=== PATIENT | male | born 1995 | race African-American/Black ===

== ENCOUNTER → 2020-04-29 09:20 | Oncology outpatient (ONC) | payer OTHER, SELFPAY ==
--- NOTE | 2019-11-30 10:14 | P.CONONC_ITS ---
History of Present Illness - Data of Consult Patient: new to practice Consult date: 11/30/19 Requesting Physician: Pardeep Diaz MD Primary Care Provider: Pardeep Diaz MD - Consult Narrative Reason for consult: Papular itching rashes with polycythemia Narrative: Noé Rios is a 24 year old male for evaluation of possible polycythemia vera. Noé reported that after he came back from [facility] early in Jun 2019, he developed intense itching skin with burning sensation, and small dotted papular rashes over his forearms and legs. He showed me the photos he took with his mobile phone. Noé said that he was evaluated by his PCP and was prescribed antihistamine Zyrtec which he said was not effective. Labs from 06/26/2019 showed WBC 5.9, HGB 16.5, HCT 51.6, PLT 219. BUN 14, Cr 1.3. Repeat test on 06/28/2019 showed WBC 7.7, HGB 16.7, HCT 52.8, PLT 242. He denies fever or chills. He denies any blisters. The papular rashes come when itching becomes severe. Furthermore, he noticed that hot shower and heat can trigger skin itching. Otherwise, he reports good energy, good appetite with normal stable weight. He denies shortness of breath, or chest pain. He denies abdominal pain, fullness or abnormal bowel movement. On 09/01/2019, he was evaluated by Arturo Diaz MD at [facility]. He was then referred to [facility] for further evaluation. CC: Ana Horowitz MD Patient reports pain?: No Home Medications and Allergies Home Medications Medication Instructions Recorded Confirmed Type No Known Home Medications 11/30/19 11/30/19 History Allergies Allergy/AdvReac Type Severity Reaction Status Date / Time No Known Drug Allergies Allergy Verified 11/30/19 10:22 Medical History - Medical, Surgical, Family History Family History: Family History (Last Updated 11/30/19 @ 10:35 by Ana Horowitz MD) Grandmother Diabetes mellitus Hypertension Mother Diabetes mellitus Grandfather Diabetes mellitus - Social History Smoking Status: Current every day smoker Substance Use Type: does not use Alcohol Intake Frequency: holidays/special occasions only Review of Systems All systems PM: reviewed and no additional remarkable complaints except as stated Exam Vital signs: 11/30/19 10:58 Last Vital Signs Temp 97.6 F 11/30/19 10:19 Pulse 70 11/30/19 10:19 Resp 16 11/30/19 10:19 BP 128/71 11/30/19 10:19 Pulse Ox 98 11/30/19 10:19 Narrative: ECOG 0 Vitals above reviewed Constitutional: well developed, and well nourished, and well groomed, not in any acute respiratory distress, pleasant and cooperative. HEENT: NCAT, EOMI, PERRLA. Anicteric sclera. Neck: Supple and symmetrical, no palpable masses. No palpable thyromegaly. Respiratory: No use of accessory muscles. CTAB, no wheezes. Cardiovascular: RRR, S1 and S2 normal, no M/G/R. No edema of lower extremities. Abdomen: Soft, NTND, no palpable masses. No palpable hepatosplenomegaly. No hernia. Lymphatic: no palpable palpable lymph nodes in the neck, or axillae Musculoskeletal: normal gait and station Skin: No rashes, lesions, or ulcers. No induration, or subcutaneous nodules. Neurological: CN II-XII grossly intact. No focal motor or sensory deficit. Psychiatric: Normal judgment and insight. AOx3. Normal memory (recent and bubba te). Normal mood and affect. Results - Labs Pending Assessment and Plan (1) Polycythemia 24-year-old male with aqua itching and mild erythrocytosis since June 2019 presents here today for consult visit. At present, patient does not have any rashes or itching. The symptoms typically occurs when he is taking hot showers or the weather is too hot. No family history of malignancy. The symptoms are worrisome for possible myeloproliferative neoplasia especially polycythemia vera. But other possibilities including allergy, cannot be completely excluded. I talked with the patient that I will obtain blood samples and proceed with screening tests first. Plan: CBC, CMP, LDH, Iron panel, Ferritin, Ig G/A/M/E, [id number] screening with reflex RTC in 4 weeks to review the results.
[2019-11-30 10:19] VITALS: BP 128/71; PULSE 70; RESP 16; TEMP 36.4; O2SAT 98
--- NOTE | 2019-12-05 14:45 | ONC.SCHED ---
Submitted for PA for JAK2 w/ Reflexes ()
--- NOTE | 2019-12-18 15:51 | ONC.SCHED ---
Faxed additional information for laboratory developed tests as completed by Yesi/Dr Horowitz.
[2019-12-21 15:40] LABS: Add Manual Diff / Slide Review NO; Basophils Absolute Auto 0 /uL (0-100); Basophils Percent Auto 0.3 % (0-2); Eosinophils Absolute Auto 100 /uL (0-450); Hematocrit 47.4 % (41-53); Hemoglobin 15.8 g/dL (13.5-17.5); Lymphocytes Absolute Auto 1600 /uL (1100-4500); Mean Corpuscular HGB Conc 33.4 % (30-36); Mean Corpuscular Hemoglobin 27.6 PG (26-34); Mean Corpuscular Volume 82.7 fL (80-100); Monocytes Absolute Auto 300 /uL (0-900); Monocytes Percent Auto 5.9 % (3-14); Neutrophils Absolute Auto 3700 /uL (1500-7000); Neutrophils Percent Auto 64.8 % (50-75); Platelet Count 199 X10^3/uL (150-400); Red Blood Cell Count 5.73 X10^6/uL (4.5-5.9); Red Cell Distribution Width 13.6 % (11.6-14.8); White Blood Cell Count 5.7 X10^3/uL (4.5-11.0)
[2019-12-21 15:52] LABS: Alanine Aminotransferase 28 IU/L (<50); Albumin 4.7 g/dL (3.5-5.0); Albumin Globulin Ratio 1.3 (1.0-2.8); Alkaline Phosphatase 62 U/L (38-126); Aspartate Aminotransferase 29 IU/L (17-59); BUN Creatinine Ratio 11.1 (6-22); Bilirubin Total 1.1 mg/dL (0.2-1.3); Blood Urea Nitrogen 13 mg/dL (9-20); Calcium 10.1 mg/dL (8.4-10.2); Carbon Dioxide 28 mmol/L (22-32); Chloride 103 mmol/L (98-107); Estimated Glomerular Filt Rate > 60.0 mL/min (>60); Globulin 3.5 g/dL (1.7-4.1); Glucose 93 mg/dL (70-100); HEMOLYSIS < 15 (0-50); Lactate Dehydrogenase 388 U/L (313-618); Sodium 139 mmol/L (137-145); Total Protein 8.2 g/dL (6.3-8.2)
[2019-12-21 15:53] LABS: HEMOLYSIS < 15 (0-50); Iron 124 ug/dL (49-181)
[2019-12-21 16:02] LABS: Erythrocyte Sedimentation Rate 1 MM/HR (0-15)
[2019-12-21 16:04] LABS: Percent Iron Saturation 41 % (20-50); Total Iron Binding Capacity 301 ug/dL (261-462); Transferrin 236 mg/dL (206-381)
[2019-12-21 16:27] LABS: Ferritin 73 ng/mL (18-464)
[2019-12-22 04:37] LABS: IGA 249 mg/dL (90-386); IGG 1619 mg/dL (603-1613); IGM 138 mg/dL (20-172)
[2019-12-24 12:36] LABS: Immunoglobulin E 58 IU/mL (6-495)
[2020-02-19 13:10] VITALS: BP 124/80; PULSE 74; RESP 18; TEMP 36.4; O2SAT 98
--- NOTE | 2020-02-19 13:21 | ONC.PN ---
PN -Subjective Interval history: ID/CC: 24 year old with polycythemia and icterus skin HPI: Noé Rios is a 24 year old male for evaluation of possible polycythemia vera. Noé reported that after he came back from [facility] early in Jun 2019, he developed intense itching skin with burning sensation, and small dotted papular rashes over his forearms and legs. He showed me the photos he took with his mobile phone. Noé said that he was evaluated by his PCP and was prescribed antihistamine Zyrtec which he said was not effective. Labs from 06/26/2019 showed WBC 5.9, HGB 16.5, HCT 51.6, PLT 219. BUN 14, Cr 1.3. Repeat test on 06/28/2019 showed WBC 7.7, HGB 16.7, HCT 52.8, PLT 242. He denies fever or chills. He denies any blisters. The papular rashes come when itching becomes severe. Furthermore, he noticed that hot shower and heat can trigger skin itching. Otherwise, he reports good energy, good appetite with normal stable weight. He denies shortness of breath, or chest pain. He denies abdominal pain, fullness or abnormal bowel movement. On 09/01/2019, he was evaluated by Arturo Diaz MD at [facility]. He was then referred to [facility] for further evaluation. Interim Events: He came here today by himself. He is complaining continued skin tiny papular rashes with itching especially when he is in prolonged hot shower and in hot weather. He presents here today to review the laboratory test results. - Additional ROS All systems PM: reviewed and no additional remarkable complaints except as stated Home Medications and Allergies Home Medications Medication Instructions Recorded Confirmed Type hydroxyzine HCl 10 mg PO TID PRN #21 tab 02/19/20 Rx Allergies Allergy/AdvReac Type Severity Reaction Status Date / Time No Known Drug Allergies Allergy Verified 11/30/19 10:22 Exam Vital signs: Vital Signs Temp Pulse Resp BP Pulse Ox 02/19/20 13:10 97.6 F 74 18 124/80 98 Intake and Output 02/18/20 02/19/20 02/19/20 23:59 07:59 15:59 Other: Weight 79 kg Patient Weight 02/19/20 23:59 Weight 79 kg Narrative: ECOG 0 Vitals above reviewed Constitutional: well developed, and well nourished, and well groomed, not in any acute respiratory distress, pleasant and cooperative. HEENT: NCAT, EOMI, PERRLA. Anicteric sclera. Neck: Supple and symmetrical, no palpable masses. No palpable thyromegaly. Respiratory: No use of accessory muscles. CTAB, no wheezes. Cardiovascular: RRR, S1 and S2 normal, no M/G/R. No edema of lower extremities. Abdomen: Soft, NTND, no palpable masses. No palpable hepatosplenomegaly. No hernia. Lymphatic: no palpable palpable lymph nodes in the neck, or axillae Musculoskeletal: normal gait and station Skin: No rashes, lesions, or ulcers. No induration, or subcutaneous nodules. Neurological: CN II-XII grossly intact. No focal motor or sensory deficit. Psychiatric: Normal judgment and insight. AOx3. Normal memory (recent and remote). Normal mood and affect. Results - Labs Laboratory Last Values WBC 5.7 X10^3/uL (4.5-11.0) 12/21/19 14:28 RBC 5.73 X10^6/uL (4.5-5.9) 12/21/19 14:28 Hgb 15.8 g/dL (13.5-17.5) 12/21/19 14:28 Hct 47.4 % (41-53) 12/21/19 14:28 MCV 82.7 fL (80-100) 12/21/19 14:28 MCH 27.6 PG (26-34) 12/21/19 14:28 MCHC 33.4 % (30-36) 12/21/19 14:28 RDW 13.6 % (11.6-14.8) 12/21/19 14:28 Plt Count 199 X10^3/uL (150-400) 12/21/19 14:28 Neut % (Auto) 64.8 % (50-75) 12/21/19 14:28 Lymph % (Auto) 28.0 % (25-40) 12/21/19 14:28 [place] % (Auto) 5.9 % (3-14) 12/21/19 14:28 Eos % (Auto) 1.0 % (2-4) L 12/21/19 14:28 Baso % (Auto) 0.3 % (0-2) 12/21/19 14:28 Neut # (Auto) 3700 /uL (2148-4674) 12/21/19 14:28 Lymph # (Auto) 1600 /uL (6492-5738) 12/21/19 14:28 [place] # (Auto) 300 /uL (0-900) 12/21/19 14:28 Eos # (Auto) 100 /uL (0-450) 12/21/19 14:28 Baso # (Auto) 0 /uL (0-100) 12/21/19 14:28 ESR 1 MM/HR (0-15) 12/21/19 14:28 Sodium 139 mmol/L (137-145) 12/21/19 14:28 Potassium 4.0 mmol/L (3.4-5.1) 12/21/19 14:28 Chloride 103 mmol/L (98-107) 12/21/19 14:28 Carbon Dioxide 28 mmol/L (22-32) 12/21/19 14:28 BUN 13 mg/dL (9-20) 12/21/19 14:28 Creatinine 1.17 mg/dL (0.66-1.25) 12/21/19 14:28 Estimated GFR > 60.0 mL/min (>60) 12/21/19 14:28 BUN/Creatinine Ratio 11.1 (6-22) 12/21/19 14:28 Glucose 93 mg/dL (70-100) 12/21/19 14:28 Calcium 10.1 mg/dL (8.4-10.2) 12/21/19 14:28 Iron 124 ug/dL (49-181) 12/21/19 14:28 TIBC 301 ug/dL (261-462) 12/21/19 14:28 % Saturation 41 % (20-50) 12/21/19 14:28 Transferrin 236 mg/dL (206-381) 12/21/19 14:28 Ferritin 73 ng/mL (18-464) 12/21/19 14:28 Total Bilirubin 1.1 mg/dL (0.2-1.3) 12/21/19 14:28 AST 29 IU/L (17-59) 12/21/19 14:28 ALT 28 IU/L (<50) 12/21/19 14:28 Alkaline Phosphatase 62 U/L (38-126) 12/21/19 14:28 Lactate Dehydrogenase 388 U/L (313-618) 12/21/19 14:28 Total Protein 8.2 g/dL (6.3-8.2) 12/21/19 14:28 Albumin 4.7 g/dL (3.5-5.0) 12/21/19 14:28 Globulin 3.5 g/dL (1.7-4.1) 12/21/19 14:28 Albumin/Globulin Ratio 1.3 (1.0-2.8) 12/21/19 14:28 IgG 1619 mg/dL (603-1613) H 12/21/19 14:28 IgA 249 mg/dL (90-386) 12/21/19 14:28 IgM 138 mg/dL (20-172) 12/21/19 14:28 IgE 58 IU/mL (6-495) 12/21/19 14:28 JAK2 V617F Mutation Comment (.) 12/21/19 14:28 JAK2 Exon 12 Backgrnd Comment (.) 12/21/19 14:28 JAK2 Director Review Comment (.) 12/21/19 14:28 JAK2 Ex 12-15 (PCR) Comment (.) 12/21/19 14:28 JAK2 Ex 12-15 Method Comment (.) 12/21/19 14:28 JAK2 Ex 12-15 References Comment (.) 12/21/19 14:28 JAK2 Ex 12-15 Dir Rev Comment (.) 12/21/19 14:28 JAK2 V617F Mut Bckgrnd Comment (.) 12/21/19 14:28 JAK2 HPGDE DNA Extract Completed (.) 12/21/19 14:28 Assessment and Plan (1) Polycythemia Overview: 24-year-old male with aqua itching and mild erythrocytosis since June 2019 Assessment: I explained to the patient that JAK2 V617F mutation was negative. I talked with him that overall this mutation account for about 90% of the patients with polycythemia vera. Rare mutations including CALR and MPL account all the remaining soldiers. Given that clinically he still is very symptomatic in terms of the skin itching, I will proceed with testing of MPL and CALR Plan: CALR and MPL mutation analysis Hydroxyazine 10mg tid prn for ithcing RTC in 2-3 weeks to review the results.
--- NOTE | 2020-02-19 15:36 | ONC.SCHED ---
Sent Urgent PA to via their website for specialty labs. These labs were drawn and sent downstairs without obtaining PA first. This energy scheduler noticed it and is in the process of getting an urgent PA. I called [employer] and they thought it would be approved today. The could not give a for certain on today's approval.
--- NOTE | 2020-02-29 10:56 | ONC.SCHED ---
Spoke at length with Timbo @ [facility] regarding the specialty labs cpt [id number] and [id number]. They had cancelled/denied the request due to not receiving additional information from us. However, they didn't send the actual request for additional information. Timbo is working to try to get this request re-considered with the same effective dates as the labs were drawn on 02-19-2020. They will likely send the request for additional information which Dr. Horowitz will complete and we will fax back. I should receive fax or contact within 48 hours.
--- NOTE | 2020-02-29 11:09 | ONC.SCHED ---
Per Timbo: patient's PCM is Dr. Suresh Govea . If we want, we can request that the PCM put in the request for specialty labs/tests, ask for a confirmation number if they agree to do PA, then fax clinicals to for Clinical Review.
--- NOTE | 2020-03-04 16:10 | ONC.SCHED ---
Received approval for MPL Mutation and denial for CALR Mutation, both drawn on 02/19/2020. Placed copy in Dr. Horowitz's box to inform him that does not cover the CALR test. Placed copy in [employer]OSPECTING [employer]LL[employer] box to see if she would like to work an appeal.
--- NOTE | 2020-03-11 11:16 | ONC.MSW ---
Description: CALR Mutation Denial Activity: Spoke with Dr. Horowitz re: the approval for the MPL mutation test, and denial for the CALR mutation test. He would like to move forward with having the pt drawn for the MPL mutation. If needed, he will then pursue the CALR mutation test based on the results. No appeal needed at this time.
--- NOTE | 2020-03-11 12:56 | ONC.MSW ---
After chart review with the model engine mechanic, it appears that the CALR mutation test was done without having checked the prior-auth status, which indicates in the EMR notes that it was denied by insurance. STAMP PRESSER will call pt to inform him that if he has this charge denied from [facility], to please call us so we can assist.
--- NOTE | 2020-04-29 09:48 | ONC.PN ---
PN -Subjective Interval history: ID/CC: 24 year old with polycythemia and icterus skin HPI: Noé Rios is a 24 year old male for evaluation of possible polycythemia vera. Noé reported that after he came back from [facility] early in Jun 2019, he developed intense itching skin with burning sensation, and small dotted papular rashes over his forearms and legs. He showed me the photos he took with his mobile phone. Noé said that he was evaluated by his PCP and was prescribed antihistamine Zyrtec which he said was not effective. Labs from 06/26/2019 showed WBC 5.9, HGB 16.5, HCT 51.6, PLT 219. BUN 14, Cr 1.3. Repeat test on 06/28/2019 showed WBC 7.7, HGB 16.7, HCT 52.8, PLT 242. He denies fever or chills. He denies any blisters. The papular rashes come when itching becomes severe. Furthermore, he noticed that hot shower and heat can trigger skin itching. Otherwise, he reports good energy, good appetite with normal stable weight. He denies shortness of breath, or chest pain. He denies abdominal pain, fullness or abnormal bowel movement. On 09/01/2019, he was evaluated by Arturo Diaz MD at [facility]. He was then referred to [facility] for further evaluation. Interim Events: He came here today by himself. The skin itching symptoms have improved which he attributed to the weather been cold than before. No skin rashes. He denies any headache, double vision or blurred vision. No wheezes. He does have morning mucus production which goes along with the skin itching. Overall, the skin itching symptoms are much better than before. - Additional ROS All systems PM: reviewed and no additional remarkable complaints except as stated Home Medications and Allergies Home Medications Medication Instructions Recorded Confirmed Type hydroxyzine HCl 10 mg PO TID PRN #21 tab 02/19/20 Rx Allergies Allergy/AdvReac Type Severity Reaction Status Date / Time No Known Drug Allergies Allergy Verified 11/30/19 10:22 Exam Vital signs: 04/29/20 10:07 Last Vital Signs Temp 97.6 F 02/19/20 13:10 Pulse 74 02/19/20 13:10 Resp 18 02/19/20 13:10 BP 124/80 02/19/20 13:10 Pulse Ox 98 02/19/20 13:10 Narrative: ECOG 0 Vitals above reviewed Constitutional: well developed, and well nourished, and well groomed, not in any acute respiratory distress, pleasant and cooperative. HEENT: NCAT, EOMI, PERRLA. Anicteric sclera. Neck: Supple and symmetrical, no palpable masses. No palpable thyromegaly. Respiratory: No use of accessory muscles. CTAB, no wheezes. Cardiovascular: RRR, S1 and S2 normal, no M/G/R. No edema of lower extremities. Abdomen: Soft, NTND, no palpable masses. No palpable hepatosplenomegaly. No hernia. Lymphatic: no palpable palpable lymph nodes in the neck, or axillae Musculoskeletal: normal gait and station Skin: No rashes, lesions, or ulcers. No induration, or subcutaneous nodules. Neurological: CN II-XII grossly intact. No focal motor or sensory deficit. Psychiatric: Normal judgment and insight. AOx3. Normal memory (recent and remote). Normal mood and affect. Results - Labs Laboratory Last Values WBC 5.7 X10^3/uL (4.5-11.0) 12/21/19 14:28 RBC 5.73 X10^6/uL (4.5-5.9) 12/21/19 14:28 Hgb 15.8 g/dL (13.5-17.5) 12/21/19 14:28 Hct 47.4 % (41-53) 12/21/19 14:28 MCV 82.7 fL (80-100) 12/21/19 14:28 MCH 27.6 PG (26-34) 12/21/19 14:28 MCHC 33.4 % (30-36) 12/21/19 14:28 RDW 13.6 % (11.6-14.8) 12/21/19 14:28 Plt Count 199 X10^3/uL (150-400) 12/21/19 14:28 Neut % (Auto) 64.8 % (50-75) 12/21/19 14:28 Lymph % (Auto) 28.0 % (25-40) 12/21/19 14:28 [place] % (Auto) 5.9 % (3-14) 12/21/19 14:28 Eos % (Auto) 1.0 % (2-4) L 12/21/19 14:28 Baso % (Auto) 0.3 % (0-2) 12/21/19 14:28 Neut # (Auto) 3700 /uL (9979-1392) 12/21/19 14:28 Lymph # (Auto) 1600 /uL (1439-6596) 12/21/19 14:28 [place] # (Auto) 300 /uL (0-900) 12/21/19 14:28 Eos # (Auto) 100 /uL (0-450) 12/21/19 14:28 Baso # (Auto) 0 /uL (0-100) 12/21/19 14:28 ESR 1 MM/HR (0-15) 12/21/19 14:28 Sodium 139 mmol/L (137-145) 12/21/19 14:28 Potassium 4.0 mmol/L (3.4-5.1) 12/21/19 14:28 Chloride 103 mmol/L (98-107) 12/21/19 14:28 Carbon Dioxide 28 mmol/L (22-32) 12/21/19 14:28 BUN 13 mg/dL (9-20) 12/21/19 14:28 Creatinine 1.17 mg/dL (0.66-1.25) 12/21/19 14:28 Estimated GFR > 60.0 mL/min (>60) 12/21/19 14:28 BUN/Creatinine Ratio 11.1 (6-22) 12/21/19 14:28 Glucose 93 mg/dL (70-100) 12/21/19 14:28 Calcium 10.1 mg/dL (8.4-10.2) 12/21/19 14:28 Iron 124 ug/dL (49-181) 12/21/19 14:28 TIBC 301 ug/dL (261-462) 12/21/19 14:28 % Saturation 41 % (20-50) 12/21/19 14:28 Transferrin 236 mg/dL (206-381) 12/21/19 14:28 Ferritin 73 ng/mL (18-464) 12/21/19 14:28 Total Bilirubin 1.1 mg/dL (0.2-1.3) 12/21/19 14:28 AST 29 IU/L (17-59) 12/21/19 14:28 ALT 28 IU/L (<50) 12/21/19 14:28 Alkaline Phosphatase 62 U/L (38-126) 12/21/19 14:28 Lactate Dehydrogenase 388 U/L (313-618) 12/21/19 14:28 Total Protein 8.2 g/dL (6.3-8.2) 12/21/19 14:28 Albumin 4.7 g/dL (3.5-5.0) 12/21/19 14:28 Globulin 3.5 g/dL (1.7-4.1) 12/21/19 14:28 Albumin/Globulin Ratio 1.3 (1.0-2.8) 12/21/19 14:28 IgG 1619 mg/dL (603-1613) H 12/21/19 14:28 IgA 249 mg/dL (90-386) 12/21/19 14:28 IgM 138 mg/dL (20-172) 12/21/19 14:28 IgE 58 IU/mL (6-495) 12/21/19 14:28 JAK2 V617F Mutation Comment (.) 12/21/19 14:28 JAK2 Exon 12 Backgrnd Comment (.) 12/21/19 14:28 JAK2 Director Review Comment (.) 12/21/19 14:28 JAK2 Ex 12-15 (PCR) Comment (.) 12/21/19 14:28 JAK2 Ex 12-15 Method Comment (.) 12/21/19 14:28 JAK2 Ex 12-15 References Comment (.) 12/21/19 14:28 JAK2 Ex 12-15 Dir Rev Comment (.) 12/21/19 14:28 JAK2 V617F Mut Bckgrnd Comment (.) 12/21/19 14:28 JAK2 HPGDE DNA Extract Completed (.) 12/21/19 14:28 Calreticulin Mutation Comment (.) 02/19/20 13:55 Calreticulin Mut Method Comment (.) 02/19/20 13:55 Calreticulin Background Comment (.) 02/19/20 13:55 Calreticulin References Comment (.) 02/19/20 13:55 Calreticulin Dir Review Comment (.) 02/19/20 13:55 MPL Mut Analysis Result Comment (.) 02/19/20 13:55 MPL Background Comment (.) 02/19/20 13:55 MPL Methodology Comment (.) 02/19/20 13:55 MPL References Comment (.) 02/19/20 13:55 MPL Director Review Comment (.) 02/19/20 13:55 Assessment and Plan (1) Polycythemia Overview: 24-year-old male with aqua itching and mild erythrocytosis since June 2019. JAK2 V617F mutation was negative. JAK2 Exon 12-15 showed no mutations. CALR and MPL mutations were not detected. Assessment: Today I reviewed the lab results with the patient. I talked with him that the polycythemia seems to be improving. In addition the tests for polycythemia vera including JAK2 mutations, CALR and MPL are all negative. No abnormal mutations were identified. Given all the above, I explained to the patient that I do not think he has primary hematological disorder. The skin itching and transient polycythemia probably are related to other medical problems. Patient has already set up appointment to see his primary care provider and will likely refer to dermatology for further evaluate. I talked with him that I do not think it is necessary for him to see me regularly. I will see the patient on as-needed basis in the future. Plan: RTC PRN.
== END ==
PROVIDERS: Visit Provider Internal Medicine Hematology & Oncology
DX: D75.1 Secondary polycythemia (principal)
CPT/HCPCS: 36415; 80053; 81219; 81270; 81402; 82728; 82784; 82785; 83540; 83550; 83615; 85025; 85651; 99204; 99214; 99215